=== PATIENT | female | born 1950 | race Caucasian/White ===

== ENCOUNTER 2017-03-22 12:32 | Outpatient (CLI) | payer MEDICARE ==
[~2017-03-22] VITALS: Ht 167.6 cm; Wt 81.2 kg
[2017-03-22 12:47] VITALS: BP 169/93
[2017-03-22] MEDS ORDERED: AMLO1CAP5 PO (13:13)
[2017-03-22] MEDS ORDERED: METO100T6 PO (13:13)
[2017-03-22] MEDS ORDERED: PARO-49 PO (13:22)
[2017-03-22] MEDS ORDERED: CHOL100045 PO (13:22)
[2017-03-22] MEDS ORDERED: ASPI-586 PO (13:22)
== END 2017-03-22 12:55 | disposition home or self-care (01) ==
LOC: PREOP 12:32
PROVIDERS: ATTEND Podiatrist Foot & Ankle Surgery
DX: Z01.818 Encounter for other preprocedural examination (principal); Z11.2 Encounter for screening for other bacterial diseases; M20.21 Hallux rigidus, right foot; M20.41 Other hammer toe(s) (acquired), right foot; M77.41 Metatarsalgia, right foot
CPT/HCPCS: 87081

== ENCOUNTER 2017-04-12 10:00 | Day surgery (SDC) | payer MEDICARE ==
[~2017-04-12] VITALS: Ht 167.6 cm; Wt 81.2 kg
[~2017-04-12 10:00] MED LIST: AMLO1CAP5 PO; ASPI-586 PO; CHOL100045 PO; METO100T6 PO; PARO-49 PO
[2017-04-12] MEDS ORDERED: LIDOCAINE PF 2% 5 ML (XYLOCAINE) VIAL ONE (10:16)
[2017-04-12] MEDS ORDERED: SEVOFLURANE (ULTANE) 15 ML INHAL SOLN ONE ×9 (10:16→14:24)
[2017-04-12] MEDS ORDERED: proPOfol 200 MG/20 ML (DIPRIVAN) VIAL IV ONE (10:16)
[2017-04-12] MEDS ORDERED: DEXAMETHASONE 10 MG/ML (DECADRON) 1 ML VIAL ONE ×2 (10:16→11:28)
[2017-04-12] MEDS ORDERED: fentaNYL INJECTION 100 MCG/2 ML AMP ONE ×2 (10:16→13:36)
[2017-04-12] MEDS ORDERED: MIDAZOLAM 2 MG/2 ML (VERSED) VIAL ONE (10:16)
[2017-04-12] MEDS ORDERED: ONDANSETRON 4 MG/2 ML (SDV) Z0FRAN ONE (10:16)
[2017-04-12] MEDS ORDERED: ceFAZolin INJECTION 1,000 MG in NS (IVPB) 50 ML IV ONE (10:30)
[2017-04-12] MEDS: LACTATED RINGERS 1,000 ML IV PRN ×2 (10:40→13:30)
--- NOTE | 2017-04-12 11:17 | Progress Note-Pre Operative ---
Pre-Operative Progress Note H&P Reviewed The H&P was reviewed, patient examined and no changes noted. Date Seen by Provider: Apr 12, 2017 Time Seen by Provider: 11:16 Date H&P Reviewed: Apr 12, 2017 Time H&P Reviewed: 11:16 Pre-Operative Diagnosis: Hallux Rigidus, Hammertoes 2,3,4, Hypertrophic 2nd Metatarsal, all right RUBEN GAVIRIA DPM Apr 12, 2017 11:17 am
[2017-04-12] MEDS ORDERED: BUPIVACAINE 0.5% 30 ML (SENSORCAINE) VIAL ONE (11:28)
[2017-04-12 11:36] VITALS: BP 163/86
[2017-04-12] MEDS ORDERED: LACTATED RINGERS 1,000 ML IV ONE (13:30)
[2017-04-12] MEDS ORDERED: LACTATED RINGERS 1,000 ML IV SCH (14:19)
--- NOTE | 2017-04-12 14:19 | Progress Note-Post Operative ---
Post-Operative Progess Note Surgeon (s)/Sanding Machine Operator Or Tender (s) Surgeon RUBEN GAVIRIA DPM Sanding Machine Operator Or Tender: none Pre-Operative Diagnosis Hallux Rigidus, Hammertoes 2,3,4, Hypertrophic 2nd Metatarsal, all right Post-Operative Diagnosis Same pluse, Hypertrophic 3rd metatarsal, right Procedure & Operative Findings Date of Procedure 04/12/17 Procedure Performed/Findings Arthrodesis 1st MTPJ, 2nd and 3rd metatarsal osteotomies, reduction of hammertoes 2, 3, 4 all right foot Anesthesia Type General Estimated Blood Loss Estimated blood loss (mL): Minimal Specimens/Packing Specimens Removed none RUBEN GAVIRIA DPM Apr 12, 2017 2:19 pm
[2017-04-12] MEDS ORDERED: ACHD5005 PO (14:21)
[2017-04-12] MEDS ORDERED: CEPH500C PO (14:21)
[2017-04-12] MEDS ORDERED: HYDROcodone/APAP 5 MG/325 MG (LORTAB) TAB PO PRN (14:30)
[2017-04-12] MEDS ORDERED: morphine INJ 10 MG/ML 1ML (SYR OR VIAL) IVP PRN (14:30)
[2017-04-12] MEDS ORDERED: ONDANSETRON 4 MG/2 ML (SDV) Z0FRAN IVP PRN ×2 (14:30)
--- NOTE | 2017-04-12 15:07 | Anesthesia-General Post-Op ---
General Patient Condition Mental Status/LOC: Same as Preop Cardiovascular: Satisfactory Nausea/Vomiting: Absent Respiratory: Satisfactory Pain: Controlled Complications: Absent Post Op Complications Complications None Follow Up Care/Instructions Patient Instructions None needed. Anesthesia/Patient Condition Patient Condition Patient S/E and is doing well, no complaints, stable vital signs, no apparent adverse anesthesia problems. YANIRA CHEATHAM DO Apr 12, 2017 15:07
[2017-04-12 15:10] VITALS: BP 138/82
[2017-04-12 15:40] VITALS: BP 132/84
--- NOTE | 2017-04-12 16:00 | Physical Therapy Ortho Eval ---
PT Orthopedic Evaluation Type of Surgery right hallux rigidus/hammertoe Prior Level of Function Current Living Status: Spouse Locomotion (Upon Admit): Independent Established Durable Medical Eq: Crutches This PT recommends FWW and knee scooter for mobility for safety concerns Subjective Subjective Patient has no c/o. Entry Into Home: Level Entry Motor Control Motor Control: Motor Control WNL ROM ROM: WFL, except focal deficit Strength Strength: WFL Transfer Transfers (B, C, W/C) (FIM): 6 Gait Gait Assistive Device: FWW Right Lower Extremity: Right Weight Bearing Status RLE: Partial Weight Bearing Left Lower Extremity: Left Weight Bearing Status LLE: Full Weight Bearing Other Weight Bearing Inst.: Heel contact only on the right Gait (FIM): 1 Distance (FIM): 1=up to 49 ft Distance: 2 hops Gait Level of Assist: 4 Treatment Rendered Treatment: Gait Train Assessment/Goals Goal Time Frame: 1 Visit recommends knee scooter and FWW Plan Treatment Plan: Discharge Treatment Duration: eval Visits Per Week: 1 PT/Family Agrees to Plan: Yes Time Time In: 1530 Time Out: 1354 Total Billed Treatment Time: 24 Billed Treatment Time 1 visit EVModC 24 min Yes PT/OT Therapy GCodes Therapy Functional Limitation: Physical Therapy Test(s)/Tool used to determine: Level of Assistance Scale Functional Limitation-Current Charge Code: MOBCUR Modifier: CI Functional Limitation-Goal Charge Code: MOBGOAL Modifier: CI Functional Limitation-D/C Charge Codes: MOBDC Modifier: CI NORMAN BECKETT PT Apr 12, 2017 16:00
[2017-04-12 16:10] VITALS: BP 140/85
[2017-04-12 16:45] VITALS: BP 163/86
--- NOTE | 2017-04-12 19:04 | Diagnostic Imaging Report ---
Right foot at 2:24 p.m. INDICATION: Postop. AP and lateral views were obtained. There are no prior studies available for comparison. FINDINGS: There are orthopedic fixation wires extending longitudinally through the phalanges of the second, third and fourth digits. There are also orthopedic fixation wires and osteotomy defects involving the medial aspects of the head of the second and third metatarsals. In addition, there is an orthopedic plate and screw fixation device along the anterior aspect of the first metatarsal and the proximal phalanx of the great toe. The orthopedic hardware seems to be in good position. There is no fracture or acute bony abnormality noted. There is a calcaneal spur. The soft tissues are unremarkable. IMPRESSION: There are postsurgical changes involving the forefoot. There is no acute abnormality identified. Dictated by: Dictated on workstation # [id number]
--- NOTE | 2017-04-12 20:18 | OPERATIVE REPORT ---
DATE OF SERVICE: 04/12/2017 SURGEON: Brittani Guthrie DPM PREOPERATIVE DIAGNOSES: 1. Hallux rigidus, right. 2. Hypertrophic second metatarsal head, right foot. 3. Hammer digit syndrome, right second, third and fourth digits. POSTOPERATIVE DIAGNOSES: 1. Hallux rigidus, right. 2. Hypertrophic second metatarsal head, right foot. 3. Hammer digit syndrome, right second, third and fourth digits. 4. Hypertrophic third metatarsal head, right foot. PROCEDURES: 1. Arthrodesis right first metatarsophalangeal joint. 2. Reduction of hammertoe second and third digits, right foot. 3. Second metatarsal osteotomy, second and third metatarsals, right foot. 4. Flexor tendon release, right fourth digit. WOUND CLASS: Clean. ANESTHESIA: General. HEMOSTASIS: Pneumatic thigh tourniquet at 250 mmHg. INDICATIONS: This 66-year-old female presents complaining of a painful right foot. Conservative therapy has met with unsatisfactory results and the patient is agreeable to surgical intervention after risks and complications were discussed at length. No guarantees were extended to the patient and she is willing to proceed. The patient was brought back to the operative table, placed in secure supine position. Appropriate time out was performed. Pneumatic thigh tourniquet was placed on the right lower extremity over several layers of padding. General anesthetic was induced. The right foot was then prepped and draped in normal sterile manner. The right foot was then elevated and allowed to exsanguinate after which the tourniquet was inflated to 250 mmHg. Attention was then directed to the dorsal aspect of the right first metatarsophalangeal joint where a 6 cm longitudinal linear incision was created. The incision was deepened in the same plane with great care to identify and retract all vital neurovascular structures. All the necessary blood vessels were cauterized as encountered. The incision was deepened down the capsule where a longitudinal capsulotomy was performed. This exposed the hypertrophic head of the first metatarsal and there was a dorsal eminence and a medial eminence noted, which was resected utilizing the power sagittal saw. There was also a significant degeneration to the articular cartilage to the head of the first metatarsal as well as the base of the proximal phalanx. There was less than 20% of the articular cartilage left behind. Utilizing a cup and cone the head of the first metatarsal and base of the proximal phalanx were fashioned for preparation of an arthrodesis at the metatarsophalangeal joint. A 0.054 K wire was utilized with fenestration as well. The wound was flushed with copious amounts of normal saline. Next, an Ortholoc 3Di dorsal [employer] plate was applied to the metatarsophalangeal joint. A 2.7 screws were utilized for the plate, which included three 18 mm in length screws to the proximal aspect of the plate. The distal had a 14 nonlocking as well as a 16 locking screw. Prior to the distal screws being applied. There was an inner fragment screw from distal medial to proximal lateral applied that was a 3.026 headed screw. Excellent bony apposition and fixation was appreciated. The final screws were then applied to the distal aspect of the dorsal plate. The wound was flushed with copious amounts of normal saline. Closure was performed in layers. Deep closure was performed with 3-0 Vicryl, superficial with 4-0 Vicryl, skin closed with 4-0 Prolene in a horizontal mattress type stitch. Attention was then directed to the right second and third rays, where an incision was created from the metatarsal surgical neck to the distal interphalangeal joint area. The two incisions were deepened in the same plane with great care to identify and retract all vital neurovascular structures. All necessary blood vessels were cauterized as encountered. The extensor tendon lengthening was performed overlying the proximal interphalangeal joint. The extensor arrington was released to the second and third metatarsal head area and a dorsal capsulorrhaphy performed to the metatarsal heads as well as medial collateral ligament release. This allowed the proximal phalanx of the second and third rays to come down in more rectus alignment and with less medial deviation. Next, a metatarsal head osteotomy was performed at an oblique angle from distal lateral to proximal medial, allowing the capital fragment to translocate proximally and shift medially. This helped with the alignment of the second and third metatarsophalangeal joints to have the proximal phalanx lining up in more appropriate alignment. Next, 2 snap-off screws were utilized to fixate the second and third metatarsal heads of 14 mm length 2.0 snap-off screws. Excellent bony apposition and fixation was appreciated at this time. The wounds were flushed with copious amounts of normal saline. Attention was then directed to the proximal interphalangeal joint of the right second digit, where an arthrodesis was performed at the proximal interphalangeal joint. The head was fashioned into a peg and a hole was created at the middle phalanx for the peg-in-hole type arthrodesis. A 0.054 K wire was driven down the digit to allow for rectus alignment. The excess K wire was cut and a protective ball placed over the end of the wire. Attention was then directed to the right third toe where a fixed contracture was noted at the distal interphalangeal joint. The transverse tenotomy was performed overlying the distal interphalangeal joint and the head of the middle phalanx was resected with a power sagittal saw. A flexor tendon release was also performed at this time. This noted a more appropriate alignment of the third digit. A 0.054 K was driven down the toe holding the toe in rectus alignment. The wound was flushed with copious amounts of normal saline. The second and third digits were then closed in layers. Deep closure was performed with 3-0 Vicryl, superficial with 4-0 Vicryl, skin closed with 4-0 Prolene in a horizontal mattress type stitch. Attention was then directed to the right fourth toe, where a stab incision with an 11 blade was performed to the proximal interphalangeal joint plantar aspect and the flexure tendon release. A dorsal incision of approximately 1 cm was also performed overlying the extensor tendon and the extensor digitorum longus was then released. This held the toe in a more rectus alignment and a 0.45 K wire was then driven down the toe holding that toe in rectus alignment. A 4-0 Prolene in a simple interrupted type stitch was performed to the dorsal incision. Postoperative injection consisted of 20 mL of 0.5% Marcaine preoperatively 10 mL of 0.5% Marcaine was injected in a local effusion to the surgical sites. The tourniquet was released noting appropriate cap refill time to all digits of the right foot. Postoperative dressing consisted of Betadine soaked Adaptic, sterile 4 x 4, sterile Kerlix all secured with a Coban wrap. The patient tolerated the anesthesia and procedure well. Postoperatively, she was given a prescription for Vicodin and Keflex. She is to follow up in my office in 10 days' period of time or sooner if necessary. She is to be nonweightbearing to the right forefoot. Job ID: [id number] DocumentID: [id number] Dictated Date: 04/12/2017 14:32:50 Senior Vice President & General Counsel Date: 04/12/2017 20:18:09 Dictated By: CHAPO DAY
== END 2017-04-12 16:35 | disposition home or self-care (01) ==
LOC: SDC 10:00
PROVIDERS: ATTEND Podiatrist Foot & Ankle Surgery
DX: M20.21 Hallux rigidus, right foot (principal); M89.371 Hypertrophy of bone, right ankle and foot; M20.41 Other hammer toe(s) (acquired), right foot; E78.5 Hyperlipidemia, unspecified; I25.10 Atherosclerotic heart disease of native coronary artery without angina pectoris; I10 Essential (primary) hypertension; K21.9 Gastro-esophageal reflux disease without esophagitis; Z95.5 Presence of coronary angioplasty implant and graft; F32.9 Major depressive disorder, single episode, unspecified; G62.9 Polyneuropathy, unspecified; Z79.899 Other long term (current) drug therapy
CPT/HCPCS: 73620

== ENCOUNTER → 2019-09-25 | Outpatient (CLI) | payer MEDICARE ==
[~2019-09-25] MED LIST changes: +ACHD5005 PO; +CEPH500C PO
[2019-09-25 10:09] LABS: ALANINE AMINOTRANSFERASE 23 U/L (0-55); ALKALINE PHOSPHATASE 90 U/L (40-136); BILIRUBIN,TOTAL 0.4 MG/DL (0.1-1.0); BUN/CREATININE RATIO 20; CALCIUM 10.1 MG/DL (8.5-10.1); CARBON DIOXIDE 26 MMOL/L (21-32); CHLORIDE 103 MMOL/L (98-107); CREATININE SERUM 0.64 MG/DL (0.60-1.30); GFR ESTIMATED > 60; GLUCOSE 103 MG/DL (70-105); SODIUM 140 MMOL/L (135-145)
[2019-09-25 10:10] LABS: ALBUMIN 4.6 GM/DL (3.2-4.5); TOTAL PROTEIN 7.2 GM/DL (6.4-8.2)
[2019-09-25 14:54] LABS: CHOLESTEROL 211 MG/DL (< 200); HDL CHOLESTEROL 69 MG/DL (40-60); TRIGLYCERIDES 104 MG/DL (<150); VLDL CHOLESTEROL 21 MG/DL (5-40)
== END ==
LOC: LAB FS 08:31
PROVIDERS: ATTEND Family Medicine
DX: I10 Essential (primary) hypertension (principal)
CPT/HCPCS: 36415; 80053; 80061

== ENCOUNTER → 2020-09-23 | Outpatient (CLI) | payer MEDICARE ==
[2020-09-23 08:51] LABS: POTASSIUM 3.9 MMOL/L (3.6-5.0)
[2020-09-23 08:54] LABS: ALBUMIN 4.4 GM/DL (3.2-4.5); BILIRUBIN,TOTAL 0.4 MG/DL (0.1-1.0); CREATININE SERUM 0.69 MG/DL (0.60-1.30); TOTAL PROTEIN 7.4 GM/DL (6.4-8.2)
== END ==
LOC: LAB FS 08:06
PROVIDERS: ATTEND Family Medicine
DX: I10 Essential (primary) hypertension (principal)
CPT/HCPCS: 36415; 80053; 80061

== ENCOUNTER → 2021-05-19 | Outpatient (CLI) | payer MEDICARE ==
[2021-05-19 11:26] LABS: ALANINE AMINOTRANSFERASE 21 U/L (0-55); ALKALINE PHOSPHATASE 97 U/L (40-136); BILIRUBIN,TOTAL 0.5 MG/DL (0.1-1.0); BUN/CREATININE RATIO 22; CALCIUM 9.8 MG/DL (8.5-10.1); CARBON DIOXIDE 28 MMOL/L (21-32); CHLORIDE 102 MMOL/L (98-107); GFR ESTIMATED 97; GLUCOSE 103 MG/DL (70-105); POTASSIUM 3.8 MMOL/L (3.6-5.0); SODIUM 140 MMOL/L (135-145)
[2021-05-19 11:27] LABS: ALBUMIN 4.6 GM/DL (3.2-4.5); TOTAL PROTEIN 7.3 GM/DL (6.4-8.2)
[2021-05-19 15:15] LABS: TRIGLYCERIDES 136 MG/DL (<150); VLDL CHOLESTEROL 27 MG/DL (5-40)
[2021-05-19 15:20] LABS: CHOLESTEROL 207 MG/DL (< 200)
[2021-05-19 15:21] LABS: HDL CHOLESTEROL 57 MG/DL (40-60)
== END ==
LOC: LAB FS 10:04
PROVIDERS: ATTEND Family Medicine
DX: Z12.31 Encounter for screening mammogram for malignant neoplasm of breast (principal); I10 Essential (primary) hypertension; I25.10 Atherosclerotic heart disease of native coronary artery without angina pectoris; F33.9 Major depressive disorder, recurrent, unspecified; R19.5 Other fecal abnormalities
CPT/HCPCS: 36415; 80053; 80061